=== PATIENT | female | born 1955 | race Caucasian/White ===

== ENCOUNTER → 2017-02-23 | Outpatient (CLI) | payer MEDICARE, MEDICAID ==
[~2017-02-23] MED LIST: Gadobutrol 7.5 mMOL/7.5 ML SDV IVPUSH STA
--- NOTE | 2017-02-24 08:36 | MR ---
EXAMINATION: MRI of the abdomen with and without contrast HISTORY: Cirrhosis of the liver COMPARISON: None TECHNIQUE: Multiplanar and multisequence images obtained through the abdomen before and following th e administration of 7.5 mL of Gadavist. FINDINGS: There is mild perihepatic and perisplenic ascites. The spleen is moderately enlarged. Ther e is likely a trace fatty infiltration of the liver which otherwise appears nodular in contour. Ther e is a tiny cyst within the left hepatic lobe. There is no abnormal area of enhancement within the l iver. Flow voids noted within the portal and splenic veins. Cholelithiasis. The pancreas and adrenal glands otherwise appear unremarkable. No bulky retroperitoneal lymphadenopathy. The kidneys enhance and function symmetrically without evidence of obstructive uropathy. Visualized bone marrow signal appears normal. IMPRESSION: 1. Nodular heterogeneous liver consistent with cirrhosis. 2. Trace abdominal ascites. 3. No abnormal enhancing nodule demonstrated within the liver. 4. Cholelithiasis. 5. Moderate splenomegaly.
== END ==
LOC: MW.MRI 10:49
PROVIDERS: ATTEND Internal Medicine Gastroenterology
DX: K70.30 Alcoholic cirrhosis of liver without ascites (principal); K80.20 Calculus of gallbladder without cholecystitis without obstruction; R16.1 Splenomegaly, not elsewhere classified
CPT/HCPCS: 74183; A9585